=== PATIENT | female | born 1955 | race Hispanic/Latino ===

== ENCOUNTER 2018-02-02 06:21 | Day surgery (SDC) | payer MEDICAID ==
[2018-01-27 08:52] VITALS: BMI 23.0
[2018-02-02] MEDS ORDERED: Lactated Ringer's 1,000 ML IV ONE ×2 (07:04→09:30)
[2018-02-02] MEDS ORDERED: ePHEDrine 50 mg/ml Inj ONE (07:19)
[2018-02-02] MEDS ORDERED: Propofol 10 mg/ml Inj (20 ML) ONE (07:19)
[2018-02-02] MEDS ORDERED: Succinylcholine 200 mg/10 ml Inj IV ONE (07:20)
[2018-02-02] MEDS ORDERED: Lidocaine 4% (Laryng-O-Jet) Kit MM ONE (07:20)
[2018-02-02] MEDS ORDERED: Midazolam 2 MG/2 ML VIAL ONE (07:20)
[2018-02-02] MEDS ORDERED: ceFAZolin IV 1 gm in Dextrose 1 GM/50 ML BAG IVPB ONE (08:05)
[2018-02-02] MEDS ORDERED: Bupivacaine 0.5% Inj(30mL) IJ ONE (08:30)
[2018-02-02] MEDS ORDERED: Rocuronium 10 mg/ml (5 ml) ONE (08:33)
[2018-02-02] MEDS ORDERED: Dexamethasone 4 mg/1 ml ONE (08:33)
[2018-02-02] MEDS ORDERED: Neostigmine 1:1000 (1 mg/ml) Inj ONE (08:42)
[2018-02-02] MEDS ORDERED: Bupivacaine HCl 0.5% PF (30 ml) Inj ONE (08:44)
[2018-02-02] MEDS ORDERED: Lactated Ringer's 1,000 ML IV SCH (09:45)
--- NOTE | 2018-02-02 09:45 | PCM.OP ---
Operative Report - Operative Report Date of Surgery/Procedure: 02/02/18 Time of Surgery/Procedure: 09:39 Surgeon: Rolando Harvey MD Pbx Supervisor: None Anesthesia/Sedation: Gen with ET tube Pre-Operative Diagnosis: endoemtrial polyp Post-Operative Diagnosis: uterine septum Indication for Surgery: 62 y/o with intracavitaty endometrial poloid like mass with history of polyps Operative Findings: Anteverted uterus, fundal andometrial septum normal appearing cornua bilaterally, difficult entry with stenosed cervical canal. During a difficult entry, possible perforation noted with the uterine sound Procedure/Operation Description: 1. Hysteroscopy 2. Operative laparoscopy This is a 62 y/ with an endometrial polypoid like intracavitary mass. Patient had a history of endoemtrial polyps in the past which were excised. Decision was made to proceed with hysteroscopic resection of possible endoemtrial polyps. Following a proper consent, she was take to the operating room, identified properly and timeout was performed. She was intubated and general anesthesia was induced with no difficulty. She was placed in dorsal lithotomy position, legs placed in adjustable stirups. she was prepped and drapped for hysterosocpy laparoscopy. Bladder was drained with cerda in sterile fashion. Speculum paced in the vagina, the cervix was dilated with great difficulty. Gentle attemp was made to dilated the cervix further to allow a hysteroscope advancement into the endoemtrial cavity. multiple attemps have failed and finally a sound was advanced through. A suspiciuos perforation with the sound led to a decision to perform a laparosocpic survey of the pelvic cavity. The hysteroscope was advanced finally and a survey of the cavity showed a midline septum like structure from the fundal. a possible small perforation was verified. Decision was made to proceed with laparosocpy despite the fact that no bleeding was apparent and no energy or sharp instruments were introduced in the cavity. A veres needle was introduced through the umbilicus and pnueomoperitoneum was achieved with approx 4 L of CO2 gas. A 5 mm trocar and sleeve introduced through a small incisoin in the infraumbilical fold and a laparscopic camera was introduced. A survey of the pelvic cavity showed normal anatomy with no hemoperitonuem and a stable small perforation likely from the sound adjacent to the right cornua. An additional suprapubic 11 mm port was introduced under visializatoin and a trocar was intruced. A figure of eight 2-0 v lock suture was used to close the small defect with great hemostasis. The abdomin was irrigated and cleared of all clots and debris. Great hemostatis noted. At this time, all instruments were removed and the pnuemoperitnoneum reduced. the asssit 11 mm incision was closed in a single 0 vicryl suture in interupted fashion. the skin incisions were closed with 4-0 monocryl in subQ fashion. Dermabond was applied to the incisions. Prior to incision patient received antibiotics (ancef 1 g), prior to closure, sponge lap and needle count were correct times 2. patient was taken to recovery room in stable condition. Estimated Blood Loss: 10 Blood Replaced: none Sponge/Instrument Count: count correct times 2 Drains: none Complications: uterine perforation on hysteroscopic entry with a uterine sound. Specimen: none Discharge & Condition: good
[2018-02-02 10:00] VITALS: RESP 18
--- NOTE | 2018-02-02 10:19 | CP.PCM.PN ---
Subjective - Date & Time of Evaluation Date of Evaluation: 02/02/18 Time of Evaluation: 10:13 - Subjective Subjective: pt is doing well in recovery room post lapascopy and hysteroscopy. Objective - Vital Signs/Intake and Output Vital Signs (last 24 hours): Temp Pulse Resp BP Pulse Ox 97.6 F 80 18 128/90 100 02/02/18 09:42 02/02/18 09:42 02/02/18 09:42 02/02/18 09:42 02/02/18 09:42 Intake and Output: 02/02/18 02/02/18 06:59 18:59 Intake Total 1000 Balance 1000 - Medications Medications: Current Medications Hydromorphone HCl (Dilaudid) 0.5 mg IVP Q10M PRN PRN Reason: Pain, moderate (4-7) Last Admin: 02/02/18 10:05 Dose: 0.5 mg Lactated Ringer's (Lactated Ringer's) 1,000 mls @ 125 mls/hr IV .Q8H LESTER - Constitutional Appears: Well, Non-toxic - Head Exam Head Exam: ATRAUMATIC - Eye Exam Pupil Exam: PERRL - ENT Exam ENT Exam: Mucous Membranes Moist, Normal Exam - Neck Exam Neck Exam: Full ROM - Respiratory Exam Respiratory Exam: NORMAL BREATHING PATTERN - Cardiovascular Exam Cardiovascular Exam: REGULAR RHYTHM - GI/Abdominal Exam GI & Abdominal Exam: Normal Bowel Sounds - Extremities Exam Extremities Exam: Normal Inspection - Neurological Exam Neurological Exam: Alert, Awake, Oriented x3 - Psychiatric Exam Psychiatric exam: Normal Affect - Additional Findings Additional findings: incisions D/C/I Assessment and Plan - Assessment and Plan (Free Text) Assessment: S/P laparoscopy and hysteroscopy with uterine septum with perforation of uterine wall pt underwent a hysterosopy for excision of polyps and following a difficult entry into the endometrial cavity due to stenosis and possible adhession, a possible small sound perforation was noted. decision was made to perform a laparoscopy to assess the pelvic cavity. 5 mm incisino was made infra umbilical and a laparsocpy was performed. survey was completed and small right cornual defect was noted. a single figure of eight suture was sufficient to close the defect with great hemostasis. pt tolerated the procedure well and taken to recovery room. Further plans to address the septum will be discussed following an MRI later on. Plan: pt to discharge home today and follow up with Dr Harvey in 2 weeks.
[2018-02-02] MEDS ORDERED: Oxycodone/Acetaminophen 5/325 mg Tab PO PRN (10:41)
[2018-02-02 11:25] VITALS: TEMP 97.4
[2018-02-02 11:29] VITALS: O2SAT 97
[2018-02-02 13:02] VITALS: BP 116/61; PULSE 71
== END 2018-02-02 14:20 | disposition home or self-care (01) ==
LOC: H.OPSURG 06:21
PROVIDERS: ATTEND Obstetrics & Gynecology
DX: N84.0 Polyp of corpus uteri (principal); E03.9 Hypothyroidism, unspecified
CPT/HCPCS: 49320; 58555; J0330; J0690; J1100; J1170; J2001; J2250; J2405; J2704; J2710; J2765; J3010; J7030; J7120